=== PATIENT | male | born 1975 | race Caucasian/White ===

== ENCOUNTER 2018-03-27 15:16 | Emergency (ER) | payer BC ==
[2018-03-27] MEDS ORDERED: methylPREDNISolone 125 MG* 2 ML VIAL IV ONE (15:23)
[2018-03-27] MEDS ORDERED: diPHENhydraMINE IV* 50 MG/ML 1 ml VIAL (BENADRYL) IV ONE (15:26)
[2018-03-27] MEDS ORDERED: EPINEPHrine AMP 1 MG/ML IM ONE (15:30)
--- NOTE | 2018-03-27 15:54 | UC ---
Allergic Reaction HPI - HPI Summary HPI Summary: Came in for assessment about 40 minutes following onset of whole body urticaria[place] no hx of stings, developed urticaria after drinking a beer and eating 2 sausages with peppers and onions. Has been aware of some nausea. Past hx of urticaria without specific causes. Had zyrtec at approximately 14:45 Became dizzy while walking into the convenient care, initial BP of around 90/60 , bradycardic, alert with O2 sat of 98%. Over the next quarter of an hour, developed chest pressure without shortness of breath. Copious sweating Given IV fluids, iv solumedrol, - History of Current Complaint Stated Complaint: RASH Time Seen by Provider: 03/27/18 15:17 Hx Obtained From: Patient, Family/Match Up Person - here with his . Onset/Duration: Sudden Onset, Lasting Hours Severity Initially: Moderate Severity Currently: Severe Location: Diffuse Character: Hives Aggravating Factor(s): Nothing Alleviating Factor(s): Antihistamines, Epinephrine Associated Signs And Symptoms: Positive: Lightheadedness, Nausea - Related Hx Possible Reaction To: Food - Allergies/Home Medications Allergies/Adverse Reactions: Allergies Allergy/AdvReac Type Severity Reaction Status Date / Time No Known Allergies Allergy Verified 03/27/18 15:18 Home Medications: Home Medications Cetirizine* [ZyrTEC 10 MG TAB*] 10 mg PO DAILY 03/27/18 [History Confirmed 03/27] PMH/Surg Hx/FS Hx/Imm Hx Previously Healthy: Yes - history of urticaria - Family History Known Family History: Positive: Cardiac Disease - father has CHF - Social History Occupation: Employed Full-time Lives: With Family Alcohol Use: Occasionally - had one beer today Substance Use Type: None Review of Systems Constitutional: Other - dizziness Skin: Rash - urticaria head to toe Eyes: Negative ENT: Negative Respiratory: Negative Cardiovascular: Chest Pain - had some chest pressure. Gastrointestinal: Negative Genitourinary: Negative Motor: Negative Neurovascular: Negative Musculoskeletal: Negative Neurological: Negative Psychological: Negative Is Patient Immunocompromised?: No All Other Systems Reviewed And Are Negative: Yes Physical Exam Triage Information Reviewed: Yes Completion Of Physical Exam Limited Due To: Other - alert but sweaty and hypotensive Appearance: Ill-Appearing - urticaria head to toe. Vital Signs Reviewed: Yes Eyes: Positive: Conjunctiva Clear, Other: - NYLA, small ENT: Positive: Pharynx normal, Uvula midline, Other - no oral swelling Neck: Positive: Supple, Nontender Respiratory Exam: Other - Sats 98 to 100% Respiratory: Positive: Lungs clear, Normal breath sounds Cardiovascular: Positive: RRR, No Murmur Abdomen Description: Positive: Nontender, No Organomegaly, Soft Bowel Sounds: Positive: Present Musculoskeletal Exam: Normal Neurological: Positive: Alert Psychological: Positive: Normal Response To Family Skin Exam: Other - urticaria trunk, neck, arms, increased ankles and wrists. Diagnostics - EKG Cardiac Rate: NL Cardiac Rhythm: Sinus: Normal Ectopy: None ST Segment: Non-Specific EKG Comparison: Other - poor r wave progression Re-Evaluation - Re-Evaluation First Eval Re-Evaluation Time: 15:25 Change: Worse Comment: BP decreased at time solumedrol given at 15:27 at that time, epi ordered and administered at 15:30 when manual BP was 58/40. BP increased to 70/ 40 after several minutes, increased to 85/50 at time of EMT hand off. Allergic Reaction Course/Dx - Course Course Of Treatment: given iv solumedrol, epinephrine given when BP decreased to 58/40 and pulse of 50, sweating. IV fluids run open, transferred to ER via ambulance. - Differential Dx/Diagnosis Differential Diagnosis/HQI/PQRI: Anaphylaxis, Angioedema, Urticaria Provider Diagnoses: anaphylaxis - Physician Notification/Consults Instructed by Provider To: Transfer - to ER by ambulance due to persistent hypotension and chest pressure. Discharge - Sign-Out/Discharge Documenting (check all that apply): Patient Departure All imaging exams completed and their final reports reviewed: No Studies - Discharge Plan Condition: Fair Disposition: TRANS HIGHER LVL OF CARE FAC - Billing Disposition and Condition Condition: FAIR Disposition: Trans Higher Lvl of Care Fac
[2018-03-27] MEDS ORDERED: NS 0.9% 1000 ML* 1,000 ML IV ONE (15:55)
[2018-03-27] MEDS ORDERED: NS 0.45% 1000 ML BAG* 1,000 ML IV SCH (16:00)
[2018-03-27] MEDS ORDERED: EPINEPHRINE 1 MG/ML 1 ML VIAL ONE (16:41)
== END 2018-03-27 15:45 | disposition short-term general hospital (02) ==
LOC: UCCORT 15:16
DX: T78.2XXA Anaphylactic shock, unspecified, initial encounter (principal); X58.XXXA Exposure to other specified factors, initial encounter; Y93.9 Activity, unspecified; Y92.89 Other specified places as the place of occurrence of the external cause
CPT/HCPCS: 93005; 96361; 96372; 96376; 99203; G0463; J0171; J1200; J2930